=== PATIENT | female | born 1965 | race American Indian/Alaskan Native ===

== ENCOUNTER 2016-12-04 | Outpatient (CLI) | payer MEDICAID | END 2016-12-04 13:01 | disposition home or self-care (01) ==

== ENCOUNTER 2016-12-04 13:46 | Outpatient (CLI) | payer MEDICAID | END 2016-12-04 13:47 | disposition home or self-care (01) | DX: J98.11 Atelectasis (principal); R05 Cough ==

== ENCOUNTER 2016-12-25 10:18 | Outpatient (CLI) | payer MEDICAID | END 2016-12-25 10:19 | disposition home or self-care (01) | DX: Z53.9 Procedure and treatment not carried out, unspecified reason (principal) ==

== ENCOUNTER 2016-12-31 06:23 | Day surgery (SDC) | payer MEDICAID ==
[2016-12-31] MEDS ORDERED: LACTATED RINGERS 1,000 ML IV ONE (06:57)
[2016-12-31] MEDS ORDERED: MIDAZOLAM 2 MG/2 ML VIAL IVP ONE (07:30)
[2016-12-31] MEDS ORDERED: fentaNYL 250 MCG/5 ML VIAL IVP ONE (07:30)
== END 2016-12-31 06:24 | disposition home or self-care (01) ==
PROC: 0DBN8ZZ Excision of Sigmoid Colon, Via Natural or Artificial Opening Endoscopic (ICD-10-PCS; principal; 2016-12-31 07:30)
DX: Z12.11 Encounter for screening for malignant neoplasm of colon (principal); F41.9 Anxiety disorder, unspecified; E03.9 Hypothyroidism, unspecified; K64.8 Other hemorrhoids
CPT/HCPCS: 45385; J3010; J7120

== ENCOUNTER 2017-01-08 13:52 | Outpatient (CLI) | payer MEDICAID | END 2017-01-08 13:53 | disposition home or self-care (01) | DX: N64.52 Nipple discharge (principal) ==

== ENCOUNTER 2017-02-01 14:05 | Outpatient (CLI) | payer MEDICAID | END 2017-02-01 14:06 | disposition home or self-care (01) | DX: J30.9 Allergic rhinitis, unspecified (principal) ==

== ENCOUNTER 2017-02-07 16:52 | Outpatient (CLI) | payer MEDICAID | END 2017-02-07 16:53 | disposition home or self-care (01) | DX: R05 Cough (principal) ==

== ENCOUNTER 2017-03-29 10:34 | Outpatient (CLI) | payer MEDICAID | END 2017-03-29 10:35 | disposition home or self-care (01) | DX: R05 Cough (principal); E03.9 Hypothyroidism, unspecified; D50.9 Iron deficiency anemia, unspecified; E53.8 Deficiency of other specified B group vitamins ==

== ENCOUNTER 2017-04-02 15:20 | Outpatient (CLI) | payer MEDICAID | END 2017-04-02 15:21 | disposition home or self-care (01) | DX: R10.9 Unspecified abdominal pain (principal) ==

== ENCOUNTER 2018-08-21 08:00 | Outpatient (CLI) | payer MEDICAID ==
[2018-08-21 19:15] LABS: THYROID STIMULATING HORMONE 2.04 uIU/mL (0.34-5.60)
[2018-08-21 19:19] LABS: % IRON SATURATION 3 % (20-50); BUN - BLOOD UREA NITROGEN 9 mg/dL (6-20); CARBON DIOXIDE - CO2 24 mmol/L (21-32); CHLORIDE 106 mmol/L (101-111); CHOL/HDL RATIO 6.2 (<4.4); CHOLESTEROL 191 mg/dL; CREATININE 0.7 mg/dL (0.4-1.0); GFR - MDRD 88 (>89); GLUCOSE 113 mg/dL (70-100); HDL CHOLESTEROL 31 mg/dL; IRON 16 ug/dL (28-170); SODIUM 137 mmol/L (135-145); TOTAL IRON BINDING CAPACITY 552 ug/dL (250-450); TRANSFERRIN 394 mg/dL (192-382)
[2018-08-21 19:20] LABS: BASOPHILS # (AUTO) 0.1 10^3/uL (0.0-0.1); BASOPHILS % (AUTO) 2.3 %; EOSINOPHILS # (AUTO) 0.3 10^3/uL (0.0-0.7); EOSINOPHILS % (AUTO) 7.9 %; HGB - HEMOGLOBIN 7.2 g/dL (12.0-16.0); LYMPHOCYTES % (AUTO) 23.7 %; MEAN CORPUSCULAR HEMOGLOBIN 18.9 pg (27.0-31.0); MEAN CORPUSCULAR HGB CONC 28.9 g/dL (32.0-36.0); MEAN CORPUSCULAR VOLUME 65.6 fL (81.0-99.0); MEAN PLATELET VOLUME 8.2 fL (7.9-10.8); MONOCYTES # (AUTO) 0.3 10^3/uL (0.0-1.0); MONOCYTES % (AUTO) 5.8 %; NEUTROPHILS # (AUTO) 2.6 10^3/uL (1.5-6.6); NEUTROPHILS % (AUTO) 60.3 %; PLT - PLATELET COUNT 374 10^3/uL (130-450); RED BLOOD COUNT 3.79 10^6/uL (4.20-5.40); RED CELL DISTRIBUTION WIDTH 19.7 % (12.0-15.0); WHITE BLOOD COUNT 4.3 x10^3/uL (4.8-10.8)
[2018-08-21 19:52] LABS: LDL CHOLESTEROL,DIRECT 75 mg/dL; LDLD/HDL RATIO 2.4 (<4.4)
[2018-08-21 20:06] LABS: PLATELET ESTIMATE, MANUAL NORMAL (130-450,000) (NORMAL); PLATELET MORPHOLOGY NORMAL APPEARANCE (NORMAL)
== END 2018-08-21 08:01 ==
LOC: LAB.N 08:00
PROVIDERS: ATTEND Physician Assistant Medical
DX: Z00.00 Encounter for general adult medical examination without abnormal findings (principal); D50.8 Other iron deficiency anemias; E78.1 Pure hyperglyceridemia; E53.8 Deficiency of other specified B group vitamins; E03.9 Hypothyroidism, unspecified
CPT/HCPCS: 36415; 80048; 80061; 82607; 82728; 83540; 83721; 84443; 84466; 85025

== ENCOUNTER 2019-01-26 13:30 | Emergency (ER) | payer MEDICAID, OTHER ==
[2019-01-26 15:40] VITALS: BP 109/61
--- NOTE | 2019-01-26 15:51 | ED Physician Documentation ---
PD HPI BACK INJURY - Stated complaint Stated Complaint: BACK PX - History obtained from History obtained from: Patient - History of Present Illness Location: Right (2 days ago at work she was leaning over a patient and pulled her back. She has had right lower back pain ever since not radiating to the legs or groin. There is no saddle anesthesia, weakness, numbness, fevers, incontinence. She does not have a history of back pain.) Review of Systems Constitutional: reports: Reviewed and negative Cardiac: reports: Reviewed and negative Respiratory: reports: Reviewed and negative PD PAST MEDICAL HISTORY - Past Surgical History Past Surgical History: Yes General: Gastric surgery - Present Medications Home Medications: Ambulatory Orders Medication Instructions Recorded Confirmed Alprazolam [Xanax] 0.5 mg PO DAILY PRN 12/28/16 12/31/16 Dextroamphetamine/Amphetamine 5 mg PO DAILY 12/28/16 12/31/16 [Adderall 10 mg Tablet] Zolpidem [Ambien] 5 mg PO HS PRN 12/28/16 12/31/16 B12/Levomefolate Calcium/B-6 1 each PO DAILY 12/31/16 12/31/16 [Foltx Tablet] Cyclobenzaprine [Flexeril] 10 mg PO PRN PRN 12/31/16 12/31/16 Ferrous Sulfate [Iron] 325 mg PO DAILY 12/31/16 12/31/16 Cyclobenzaprine [Flexeril] 10 mg PO TID PRN #20 tablet 01/26/19 Ibuprofen [Motrin] 800 mg PO Q8H PRN #30 tablet 01/26/19 - Allergies Allergies/Adverse Reactions: Allergies Allergy/AdvReac Type Severity Reaction Status Date / Time No Known Drug Allergies Allergy Verified 01/26/19 13:41 - Social History Does the pt smoke?: Yes Smoking Status: Current every day smoker Does the pt drink ETOH?: Yes Does the pt have substance abuse?: No - Immunizations Immunizations are current?: Yes PD ED PE NORMAL - Vitals Vital signs reviewed: Yes - General General: Alert and oriented X 3, No acute distress - Back Back: No CVA TTP, No spinal TTP - Extremities Extremities: Other (The patient has equal and normal Achilles and patellar reflexes bilaterally. Normal sensation in all areas of the legs. Patient denies saddle anesthesia. Normal strength in flexion-extension at the ankles, knees, and flexion of the hips.) - Neuro Neuro: Alert and oriented X 3, Normal speech - Psych Psych: Normal mood, Normal affect Results - Vitals Vitals: Vital Signs - 24 hr 01/26/19 01/26/19 13:39 15:39 Temperature 36.3 C L 36.6 C Heart Rate 69 79 Respiratory 18 16 Rate Blood Pressure 111/62 109/61 O2 Saturation 97 Oxygen O2 Source Room air Departure - Departure Disposition: Home, Self Care Clinical Impression: Lumbar strain Qualifiers: Encounter type: initial encounter Qualified Code(s): S39.012A - Strain of muscle, fascia and tendon of lower back, initial encounter Condition: Good Record reviewed to determine appropriate education?: Yes Instructions: ED Sprain Strain Lumbar Prescriptions: Cyclobenzaprine [Flexeril] 10 mg PO TID PRN #20 tablet PRN Reason: Spasms Ibuprofen [Motrin] 800 mg PO Q8H PRN #30 tablet PRN Reason: PAIN &/OR FEVER Comments: Call your doctor to arrange a follow-up appointment, make the next available appointment. In the interim, return anytime if worse or if new symptoms develop. Forms: Activity restrictions
== END 2019-01-26 16:00 | disposition home or self-care (01) ==
LOC: ED 13:30
DX: S39.012A Strain of muscle, fascia and tendon of lower back, initial encounter (principal); X50.9XXA Other and unspecified overexertion or strenuous movements or postures, initial encounter; Y93.F9 Activity, other caregiving; Y99.0 Civilian activity done for income or pay; F17.200 Nicotine dependence, unspecified, uncomplicated
CPT/HCPCS: 1040M; 99283

== ENCOUNTER 2019-06-05 08:00 | Outpatient (CLI) | payer MEDICAID | END 2019-06-05 23:59 | disposition home or self-care (01) | LOC: LAB.R 08:00 | PROVIDERS: ATTEND Family Medicine | DX: N39.0 Urinary tract infection, site not specified (principal) | CPT/HCPCS: 87086; 87181 ==

== ENCOUNTER 2020-03-22 08:00 | Outpatient (CLI) | payer SELFPAY | END 2020-03-22 23:59 | disposition home or self-care (01) | LOC: LAB.R 08:00 | PROVIDERS: ATTEND Family Medicine | DX: R50.9 Fever, unspecified (principal); Z20.828 Contact with and (suspected) exposure to other viral communicable diseases | CPT/HCPCS: 81599 ==

== ENCOUNTER 2020-04-19 09:42 | Outpatient (CLI) | payer SELFPAY ==
--- NOTE | 2020-04-19 17:40 | XRAY Report ---
Reason: RIGHT LEG PAIN Procedure Date: 04/19/2020 Accession Number: [id number] / [id number] Procedure: WCP - Tib/Fib RT CPT Code: Final Report FULL RESULT: EXAM: RIGHT TIBIA/FIBULA RADIOGRAPHY EXAM DATE: 04/19/2020 09:35 AM. CLINICAL HISTORY: RIGHT LEG PAIN. Fall 10 days ago, pain along the entire fibula. COMPARISON: None. TECHNIQUE: 2 views. FINDINGS: Bones: Cortical lucency seen at the medial aspect of the fibula neck concerning for an acute fibular neck fracture. Adjacent soft tissue swelling. Correlate clinically. Chronic bone density seen distal to the medial malleolus, suspect chronic avulsion fracture. Joints: No subluxation. Mild patellofemoral degenerative joint disease. IMPRESSION: Cortical lucency seen at the medial aspect of the fibula neck concerning for an acute fibular neck fracture. Adjacent soft tissue swelling. Correlate clinically. RADIA
--- NOTE | 2020-04-19 17:59 | XRAY Report ---
Reason: RIGHT ANKLE PAIN Procedure Date: 04/19/2020 Accession Number: [id number] / [id number] Procedure: WCP - Ankle 3 View RT CPT Code: Final Report FULL RESULT: EXAM: RIGHT ANKLE RADIOGRAPHY EXAM DATE: 04/19/2020 09:42 AM. CLINICAL HISTORY: RIGHT ANKLE PAIN. Status post fall 10 days ago with lateral malleolar pain. COMPARISON: None. TECHNIQUE: 3 views. FINDINGS: Bones: No acute fracture. Ossified body adjacent to the tip of the medial malleolus likely sequela of old trauma. There is also an ossified body adjacent to the tip of the lateral malleolus, also likely representing sequela of old trauma. No suspicious osseous lesion. Plantar and posterior calcaneal spurs. Joints: Moderate tibiotalar joint osteoarthritis . Asymmetric tibiotalar joint space loss most pronounced in the medial aspect. No dislocation. Other: None. IMPRESSION: 1. No acute osseous abnormality. 2. Chronic findings detailed above. RADIA
== END 2020-04-19 09:43 | disposition home or self-care (01) ==
LOC: DI.WCP 09:42
PROVIDERS: ATTEND Family Medicine
DX: M19.071 Primary osteoarthritis, right ankle and foot (principal); M79.604 Pain in right leg

== ENCOUNTER 2020-04-29 08:42 | Outpatient (CLI) | payer MEDICAID ==
--- NOTE | 2020-04-29 15:59 | XRAY Report ---
Reason: RIGHT PROXIMAL FIBULA FRACTURE Procedure Date: 04/29/2020 Accession Number: [id number] / [id number] Procedure: WCP - Tib/Fib RT CPT Code: Final Report FULL RESULT: EXAM: RIGHT TIBIA/FIBULA RADIOGRAPHY EXAM DATE: 04/29/2020 09:18 AM. CLINICAL HISTORY: Right proximal fibula fracture. COMPARISON: XR LEG LOWER RT 04/19/2020 9:35 AM. TECHNIQUE: 2 views. FINDINGS: Bones: As before, there is a nondisplaced fracture at the fibular neck. No bone lesions. Small bone fragment adjacent to the medial malleolus which may represent an accessory ossicle or old ununited fracture. Joints: The visualized knee and ankle joints are normal. No effusions. Soft Tissues: Normal. No soft tissue swelling. IMPRESSION: 1. Persistent nondisplaced fracture at the fibular neck. No significant change since the prior study. 2. Small accessory ossicle or old ununited fracture adjacent to the medial malleolus. RADIA
== END 2020-04-29 23:59 | disposition home or self-care (01) ==
LOC: DI.WCP 08:42
PROVIDERS: ATTEND Orthopaedic Surgery
DX: S82.81 Torus fracture of upper end of fibula (principal)

== ENCOUNTER 2020-05-26 12:20 | Outpatient (CLI) | payer MEDICAID ==
[2020-05-26 18:33] LABS: BASOPHILS # (AUTO) 0.1 10^3/uL (0.0-0.1); BASOPHILS % (AUTO) 1.2 %; EOSINOPHILS # (AUTO) 0.2 10^3/uL (0.0-0.7); EOSINOPHILS % (AUTO) 3.6 %; HGB - HEMOGLOBIN 7.5 g/dL (12.0-16.0); LYMPHOCYTES # (AUTO) 1.2 10^3/uL (1.5-3.5); LYMPHOCYTES % (AUTO) 17.8 %; MEAN CORPUSCULAR HEMOGLOBIN 18.7 pg (27.0-31.0); MEAN CORPUSCULAR HGB CONC 25.6 g/dL (32.0-36.0); MEAN CORPUSCULAR VOLUME 73.1 fL (81.0-99.0); MEAN PLATELET VOLUME 11.2 fL (7.9-10.8); MONOCYTES # (AUTO) 0.3 10^3/uL (0.0-1.0); MONOCYTES % (AUTO) 4.6 %; NEUTROPHILS # (AUTO) 4.7 10^3/uL (1.5-6.6); NEUTROPHILS % (AUTO) 72.5 %; PLT - PLATELET COUNT 325 10^3/uL (130-450); RED BLOOD COUNT 4.01 10^6/uL (4.20-5.40); RED CELL DISTRIBUTION WIDTH 19.1 % (12.0-15.0); WHITE BLOOD COUNT 6.5 x10^3/uL (4.8-10.8)
[2020-05-26 18:52] LABS: PLATELET ESTIMATE, MANUAL NORMAL (130-450,000) (NORMAL); PLATELET MORPHOLOGY NORMAL APPEARANCE (NORMAL)
[2020-05-26 19:18] LABS: ALBUMIN 3.8 g/dL (3.2-5.5); ALBUMIN/GLOBULIN RATIO 1.4 (1.0-2.2); ALKALINE PHOSPHATASE 50 IU/L (42-121); ALT ALANINE AMINOTRANSFERASE < 10 IU/L (10-60); AST ASPARTATE AMINOTRANSFERASE 13 IU/L (10-42); BILIRUBIN,TOTAL 0.7 mg/dL (0.2-1.0); BUN - BLOOD UREA NITROGEN 8 mg/dL (6-20); CARBON DIOXIDE - CO2 24 mmol/L (21-32); CHLORIDE 105 mmol/L (101-111); CHOL/HDL RATIO 3.6 (<4.4); CHOLESTEROL 152 mg/dL; CREATININE 0.6 mg/dL (0.4-1.0); GLUCOSE 99 mg/dL (70-100); HDL CHOLESTEROL 42 mg/dL; LDL CHOLESTEROL,CALCULATED 44 mg/dL; SODIUM 135 mmol/L (135-145); TOTAL PROTEIN 6.6 g/dL (6.7-8.2); VLDL CHOLESTEROL 66 mg/dL
[2020-05-26 19:20] LABS: FREE T3 2.84 pg/mL (2.5-3.9)
[2020-05-26 19:21] LABS: FREE T4 (FREE THYROXINE) 0.69 ng/dL (0.58-1.64); THYROID STIMULATING HORMONE 3.45 uIU/mL (0.34-5.60)
== END 2020-05-26 23:59 | disposition home or self-care (01) ==
LOC: LAB.WCP 12:20
PROVIDERS: ATTEND Family Medicine
DX: E03.9 Hypothyroidism, unspecified (principal); N18.2 Chronic kidney disease, stage 2 (mild); D50.9 Iron deficiency anemia, unspecified
CPT/HCPCS: 36415; 80053; 80061; 83721; 84439; 84443; 84481; 85025

== ENCOUNTER 2020-08-15 08:00 | Outpatient (CLI) | payer MEDICAID ==
[2020-08-15 19:16] LABS: ABSOLUTE RETICS # AUTO 0.054 10^6/uL (0.020-0.110); BASOPHILS # (AUTO) 0.1 10^3/uL (0.0-0.1); BASOPHILS % (AUTO) 2.2 %; EOSINOPHILS # (AUTO) 0.3 10^3/uL (0.0-0.7); EOSINOPHILS % (AUTO) 6.4 %; HGB - HEMOGLOBIN 10.2 g/dL (12.0-16.0); LYMPHOCYTES # (AUTO) 1.5 10^3/uL (1.5-3.5); LYMPHOCYTES % (AUTO) 36.9 %; MEAN CORPUSCULAR HEMOGLOBIN 24.2 pg (27.0-31.0); MEAN CORPUSCULAR HGB CONC 29.1 g/dL (32.0-36.0); MEAN CORPUSCULAR VOLUME 83.4 fL (81.0-99.0); MEAN PLATELET VOLUME 11.2 fL (7.9-10.8); MONOCYTES # (AUTO) 0.3 10^3/uL (0.0-1.0); MONOCYTES % (AUTO) 7.1 %; NEUTROPHILS # (AUTO) 1.9 10^3/uL (1.5-6.6); NEUTROPHILS % (AUTO) 47.2 %; PLT - PLATELET COUNT 336 10^3/uL (130-450); RED BLOOD COUNT 4.21 10^6/uL (4.20-5.40); RED CELL DISTRIBUTION WIDTH 23.8 % (12.0-15.0); WHITE BLOOD COUNT 4.1 x10^3/uL (4.8-10.8)
[2020-08-15 19:55] LABS: FOLATE 12.09 ng/mL (5.90 - >24.8)
[2020-08-15 19:56] LABS: % IRON SATURATION 4 % (20-50); IRON 18 ug/dL (28-170); TOTAL IRON BINDING CAPACITY 491 ug/dL (250-450); TRANSFERRIN 351 mg/dL (192-382)
[2020-08-15 20:51] LABS: PLATELET ESTIMATE, MANUAL NORMAL (130-450,000) (NORMAL); PLATELET MORPHOLOGY NORMAL APPEARANCE (NORMAL)
== END 2020-08-15 23:59 | disposition home or self-care (01) ==
LOC: LAB.WCP 08:00
PROVIDERS: ATTEND Family Medicine
DX: D64.9 Anemia, unspecified (principal)
CPT/HCPCS: 36415; 82607; 82728; 82746; 83540; 84466; 85025; 85045

== ENCOUNTER 2020-08-15 10:05 | Outpatient (CLI) | payer MEDICAID ==
--- NOTE | 2020-08-17 07:17 | Mammography Report ---
BILATERAL DIGITAL SCREENING MAMMOGRAM 3D/2D: 08/15/2020 CLINICAL: Routine screening. Comparison is made to exam dated: 01/08/2017 mammogram - [facility]. There are scat tered fibroglandular elements in both breasts. No significant masses, calcifications, or other findings are seen in either breast. There has been no significant interval change. IMPRESSION: NEGATIVE There is no mammographic evidence of malignancy. A 1 year screening mammogram is recommended. This exam was interpreted at Station ID: [id number]. NOTE: For mammograms, a report in lay terms will be sent to the patient. Approximately 15% of breast malignancies will not be visualized mammographically. In the management of a palpable breast mass, a negative mammogram must not discourage biopsy of a clinically suspicious lesion. Electronically Signed By: Arelis harvey/aileen:08/15/2020 11:46:47 ACR BI-RADS Category 1: Negative 3341F PARENCHYMAL PATTERN: (A) - The breast(s) demonstrate(s) scattered fibroglandular densities. BI-RADS CATEGORY: (1) - 1 RECOMMENDATION: (ANNUAL) - Recommend routine annual screening mammography. [id number] 1 year screening LATERALITY: (B)
== END 2020-08-15 10:06 | disposition home or self-care (01) ==
LOC: DI.N 10:05
DX: Z12.31 Encounter for screening mammogram for malignant neoplasm of breast (principal)
CPT/HCPCS: 77063; 77067

== ENCOUNTER 2020-11-18 08:00 | Outpatient (CLI) | payer MEDICAID ==
[2020-11-18 18:16] LABS: BASOPHILS # (AUTO) 0.1 10^3/uL (0.0-0.1); BASOPHILS % (AUTO) 1.3 %; EOSINOPHILS # (AUTO) 0.3 10^3/uL (0.0-0.7); EOSINOPHILS % (AUTO) 6.5 %; HGB - HEMOGLOBIN 12.4 g/dL (12.0-16.0); LYMPHOCYTES # (AUTO) 1.6 10^3/uL (1.5-3.5); MEAN CORPUSCULAR HEMOGLOBIN 26.8 pg (27.0-31.0); MEAN CORPUSCULAR VOLUME 89.6 fL (81.0-99.0); MEAN PLATELET VOLUME 11.7 fL (7.9-10.8); MONOCYTES # (AUTO) 0.2 10^3/uL (0.0-1.0); MONOCYTES % (AUTO) 4.9 %; NEUTROPHILS # (AUTO) 2.3 10^3/uL (1.5-6.6); NEUTROPHILS % (AUTO) 52.1 %; PLT - PLATELET COUNT 293 10^3/uL (130-450); RED BLOOD COUNT 4.62 10^6/uL (4.20-5.40); RED CELL DISTRIBUTION WIDTH 20.4 % (12.0-15.0); WHITE BLOOD COUNT 4.5 x10^3/uL (4.8-10.8)
[2020-11-18 18:40] LABS: PLATELET ESTIMATE, MANUAL NORMAL (130-450,000) (NORMAL); PLATELET MORPHOLOGY NORMAL APPEARANCE (NORMAL)
== END 2020-11-18 23:59 ==
LOC: LAB.WCP 08:00
PROVIDERS: ATTEND Family Medicine
DX: D64.9 Anemia, unspecified (principal)
CPT/HCPCS: 36415; 82728; 85025

== ENCOUNTER 2021-02-17 08:00 | Outpatient (CLI) | payer MEDICAID ==
[2021-02-17 17:58] LABS: BASOPHILS # (AUTO) 0.1 10^3/uL (0.0-0.1); BASOPHILS % (AUTO) 1.4 %; EOSINOPHILS # (AUTO) 0.4 10^3/uL (0.0-0.7); EOSINOPHILS % (AUTO) 8.6 %; HCT - HEMATOCRIT 41.5 % (37.0-47.0); HGB - HEMOGLOBIN 13.5 g/dL (12.0-16.0); LYMPHOCYTES # (AUTO) 1.6 10^3/uL (1.5-3.5); LYMPHOCYTES % (AUTO) 39.3 %; MEAN CORPUSCULAR HEMOGLOBIN 31.6 pg (27.0-31.0); MEAN CORPUSCULAR HGB CONC 32.5 g/dL (32.0-36.0); MEAN CORPUSCULAR VOLUME 97.2 fL (81.0-99.0); MONOCYTES # (AUTO) 0.3 10^3/uL (0.0-1.0); MONOCYTES % (AUTO) 6.2 %; NEUTROPHILS # (AUTO) 1.8 10^3/uL (1.5-6.6); NEUTROPHILS % (AUTO) 44.3 %; PLT - PLATELET COUNT 248 10^3/uL (130-450); RED BLOOD COUNT 4.27 10^6/uL (4.20-5.40); RED CELL DISTRIBUTION WIDTH 14.4 % (12.0-15.0); WHITE BLOOD COUNT 4.2 x10^3/uL (4.8-10.8)
[2021-02-17 18:26] LABS: % IRON SATURATION 29 % (20-50); IRON 104 ug/dL (28-170); TOTAL IRON BINDING CAPACITY 356 ug/dL (250-450); TRANSFERRIN 254 mg/dL (192-382)
== END 2021-02-17 23:59 | disposition home or self-care (01) ==
LOC: LAB.WCP 08:00
PROVIDERS: ATTEND Family Medicine
DX: D50.9 Iron deficiency anemia, unspecified (principal)
CPT/HCPCS: 36415; 82728; 83540; 84466; 85025

== ENCOUNTER 2021-06-30 08:00 | Outpatient (CLI) | payer MEDICAID ==
[2021-06-30 17:38] LABS: BASOPHILS % (AUTO) 0.9 %; EOSINOPHILS # (AUTO) 0.3 10^3/uL (0.0-0.7); EOSINOPHILS % (AUTO) 5.8 %; HCT - HEMATOCRIT 44.4 % (37.0-47.0); HGB - HEMOGLOBIN 14.5 g/dL (12.0-16.0); LYMPHOCYTES # (AUTO) 1.4 10^3/uL (1.5-3.5); LYMPHOCYTES % (AUTO) 31.3 %; MEAN CORPUSCULAR HEMOGLOBIN 32.2 pg (27.0-31.0); MEAN CORPUSCULAR HGB CONC 32.7 g/dL (32.0-36.0); MEAN CORPUSCULAR VOLUME 98.4 fL (81.0-99.0); MEAN PLATELET VOLUME 10.8 fL (7.9-10.8); MONOCYTES # (AUTO) 0.3 10^3/uL (0.0-1.0); MONOCYTES % (AUTO) 5.6 %; NEUTROPHILS # (AUTO) 2.5 10^3/uL (1.5-6.6); NEUTROPHILS % (AUTO) 56.2 %; PLT - PLATELET COUNT 221 10^3/uL (130-450); RED BLOOD COUNT 4.51 10^6/uL (4.20-5.40); RED CELL DISTRIBUTION WIDTH 12.3 % (12.0-15.0); WHITE BLOOD COUNT 4.5 x10^3/uL (4.8-10.8)
[2021-06-30 17:52] LABS: % IRON SATURATION 39 % (20-50); ALBUMIN 4.2 g/dL (3.2-5.5); ALBUMIN/GLOBULIN RATIO 1.4 (1.0-2.2); ALKALINE PHOSPHATASE 87 IU/L (42-121); ALT ALANINE AMINOTRANSFERASE 49 IU/L (10-60); AST ASPARTATE AMINOTRANSFERASE 27 IU/L (10-42); BILIRUBIN,TOTAL 1.4 mg/dL (0.2-1.0); BUN - BLOOD UREA NITROGEN 8 mg/dL (6-20); CALCIUM 10.5 mg/dL (8.5-10.3); CARBON DIOXIDE - CO2 26 mmol/L (21-32); CHLORIDE 101 mmol/L (101-111); CHOL/HDL RATIO 5.8 (<4.4); CHOLESTEROL 266 mg/dL; CREATININE 0.7 mg/dL (0.4-1.0); GFR - MDRD 87 (>89); GLUCOSE 107 mg/dL (70-100); HDL CHOLESTEROL 46 mg/dL; IRON 167 ug/dL (28-170); POTASSIUM 4.3 mmol/L (3.5-5.0); SODIUM 136 mmol/L (135-145); TOTAL IRON BINDING CAPACITY 427 ug/dL (250-450); TOTAL PROTEIN 7.1 g/dL (6.7-8.2); TRANSFERRIN 305 mg/dL (192-382); TRIGLYCERIDES 606 mg/dL
[2021-06-30 18:04] LABS: THYROID STIMULATING HORMONE 5.38 uIU/mL (0.34-5.60)
[2021-06-30 18:10] LABS: FERRITIN 45.2 ng/mL (11.0-306.8)
[2021-06-30 18:15] LABS: FOLATE 12.93 ng/mL (5.90 - >24.8)
[2021-06-30 18:48] LABS: LDL CHOLESTEROL,DIRECT 149 mg/dL; LDLD/HDL RATIO 3.2 (<4.4)
== END 2021-06-30 23:59 | disposition home or self-care (01) ==
LOC: LAB.WCP 08:00
PROVIDERS: ATTEND Family Medicine
DX: M19.049 Primary osteoarthritis, unspecified hand (principal); J45.909 Unspecified asthma, uncomplicated; Z98.84 Bariatric surgery status; D64.9 Anemia, unspecified; E03.9 Hypothyroidism, unspecified; D50.8 Other iron deficiency anemias
CPT/HCPCS: 36415; 80053; 80061; 82607; 82728; 82746; 83540; 83721; 84443; 84466; 85025

== ENCOUNTER 2021-07-27 14:09 | Outpatient (CLI) | payer MEDICAID ==
[2021-07-27 15:15] VITALS: BP 115/77
--- NOTE | 2021-07-27 15:15 | SLEEP CARE CONSULTATION ---
Information from patient questionnaire entered by Jaelyn Cazares. I have reviewed and concur with the information entered by Jaelyn Cazares. This document represents the service I personally performed and the decisions made by me, Alyssa Cadet ARNP. History of Present Illness Service Date and Time: 07/27/2021 1409 Reason for Visit: New patient Chief Complaint: reports: Unrefreshed sleep, Snoring, Excessive daytime sleepiness, Observed pauses in breathing, Fatigue. denies: Frequent awakenings at night Date of Onset: 20 years Usual bedtime: 1 am Time it takes to fall asleep: 20 minutes Snores at night: Yes Observed to quit breathing while asleep: Yes Sleeps alone due to snoring: No Number of times waking at night: 2 Reasons for waking at night: reports: Snoring, Bathroom, Other (hot flashes) Toss, Turn, or Twitch while sleeping: Yes Recalls having dreams: Yes Usually gets out of bed at: 10 am Feels refreshed in the morning: No Morning headache: Yes (occasionally; 1x week) Sleepy or fatigued during the day: Yes Ever fallen asleep while driving: No Takes day naps: No Dreams during day naps: Yes Prior sleep studies: No Additional HPI information: I had the pleasure of seeing ZELALEM MICHELLE today regarding the possibility of her having a sleep disorder. Her current complaints are observed pauses in breathing, fatigue and snoring. She was over 200 pounds and had times when she stopped breathing and snored loudly. She had gastric bypass surgery and lost weight which reduced the snoring and pauses in breathing. She has been gaining weight slowly over the last 4 years and she has noted increase in snoring and family has told her she is stopping breathing at night. She states it is hard to get up, doesn't ever feel rested. She has occasional morning headaches and has woke herself up "snorting". She has a sibling who has been diagnosed with sleep apnea and in on PAP machine. 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 Patient is and lives in [place]. Have you smoked in the past 12 months: No Cigarettes per day (20/pack): 10 Years of smokin Quit date: 2015 Smoking Pack Years: 2.5 Alcohol use: Yes Alcohol amount and frequency: 1-2 drinks 5 - 7 times a week Caffeine use: Yes Caffeine amount and frequency: 1 drink occasionally Family History Family history of sleep disordered breathing: Yes Family Hx Sleep Apnea: Father: Snoring, Sleep apnea - Untreated, Sibling: Snoring, Sleep apnea - Treated Allergies and Home Medications Drug allergies reviewed: Yes (NKDA) Home medication list reviewed: Yes Allergy and home medication list: Trazodone Bupropion Iron infusion 2 x year, prn Review of Systems Cardiovascular: denies: high blood pressure Gastrointestinal: reports: heartburn Psychiatric: reports: other (ADD) Ear/Nose/Throat: reports: dry mouth/throat, other (dry cough). denies: tonsil lectomy Musculoskeletal: reports: joint pain Physical Exam Blood Pressure: 115/77 Cuff size: wrist Heart Rate: 90 O2 Saturation: 97 Height: 5 ft 6 in Weight: 196 lb Body Mass Index: 31.6 BMI Classification: Obese Neck circumference: 13.75 (inches) Nostrils: patent to airflow Mouth and throat: narrow oropharynx Soft palate: long Hard palate: normal Uvula: normal Uvula visualization: 100% Mallampati Class I Tongue: normal in size Tonsils: small Neck: normal w/o lymphadenopathy or thyromegaly Heart: regular rate and rhythm Lungs: clear bilaterally Impression and Plan 1. Suspected Obstructive Sleep Apnea-Hypopnea Syndrome, as suggested by a history of loud and irregular snoring, observed cessation of breath while asleep, morning headache, unrefreshed sleep, cognitive impairment, and excessive daytime sleepiness. Narrow oropharynx and obesity are common predisposing factors for obstructive sleep apnea-hypopnea syndrome. I recommend proceeding to polysomnography to confirm the diagnosis and to assess severity. If the patient has significant sleep disordered breathing, a manual CPAP titration study will also be performed to find the optimal treatment pressure. I informed the patient of what the sleep studies involve and after some discussion, obtained agreement to proceed. The pathophysiology of obstructive sleep apnea-hypopnea syndrome was discussed with the patient and health risks of cardiovascular and cerebrovas cular disease if not treated. Risks of drowsy driving discussed in detail and patient advised to avoid long distance driving and to pull out operator at the first sign of drowsiness. Patient agreed to plan. * Schedule polysomnography +- manual CPAP titration study and return in 1-2 weeks after the study to discuss result and initiate therapy. * Avoid long distance driving or driving when feeling sleepy. * Avoid alcohol, sedative and muscle relaxant around bedtime. * Attempt to lose weight. * Review instructions provided by trained office staff on how to prepare for the sleep study. * Return for follow-up after sleep study completed. Counseling Topics: Weight loss health impact Visit Type: In Office Time Spent with Patient (minutes): 31 Provider Statement: I spent 100% of the Face to Face Visit with the patient with greater than 50% spent counseling the patient and coordination of care.
== END 2021-07-27 14:10 | disposition home or self-care (01) ==
LOC: SC 14:09
PROVIDERS: ATTEND Nurse Practitioner Family
DX: G47.10 Hypersomnia, unspecified (principal); R06.83 Snoring; R06.81 Apnea, not elsewhere classified; R41.89 Other symptoms and signs involving cognitive functions and awareness; R51.9 Headache, unspecified; E66.9 Obesity, unspecified; Z68.31 Body mass index [BMI] 31.0-31.9, adult
CPT/HCPCS: 99203; 99212

== ENCOUNTER 2021-08-29 12:14 | Outpatient (CLI) | payer MEDICAID ==
--- NOTE | 2021-08-29 17:33 | XRAY Report ---
PROCEDURE: Shoulder 3 View RT INDICATIONS: ANTERIOR SUBLUXATION OF R HUMERUS TECHNIQUE: 3 views of the shoulder were acquired. COMPARISON: None. FINDINGS: Bones: No fractures or dislocations. Moderate acromioclavicular joint osteoarthritic changes are see n. Mild to moderate glenohumeral joint osteoarthritic changes also noted. No suspicious bony lesions. Visualized ribs appear intact. Soft tissues: No suspicious soft tissue calcifications. IMPRESSION: Mild to moderate right shoulder joint osteoarthritis. No acute shoulder fracture or disl ocation. Reviewed by: Antonio Carrillo MD on 08/29/2021 5:32 PM PDT Approved by: Antonio Carrillo MD on 08/29/2021 5:32 PM PDT Station ID: [id number]
== END 2021-08-29 12:15 ==
LOC: DI.N 12:14
PROVIDERS: ATTEND Physician Assistant Medical
DX: S43.011A Anterior subluxation of right humerus, initial encounter (principal); M19.011 Primary osteoarthritis, right shoulder

== ENCOUNTER 2022-08-29 10:56 | Outpatient (CLI) | payer MEDICAID ==
[2022-08-29 11:23] VITALS: BP 112/82
--- NOTE | 2022-08-29 11:23 | SLEEP CARE CONSULTATION ---
Information from patient questionnaire entered by Carroll Ceja. I have reviewed and concur with the information entered by Carroll Ceja. This document represents the service I personally performed and the decisions made by me, Alyssa Cadet ARNP. History of Present Illness Service Date and Time: 08/29/2022 1056 Reason for follow up: annual (last seen 07/22, sleep study never done ) Prior sleep studies: No HPI additional information: I had the pleasure of seeing ZELALEM MICHELLE today regarding the possibility of her having a sleep disorder. She was last seen in July 2021 and a sleep study was ordered but never done. She returns today with complaints of unrefreshed sleep, snoring, excessive daytime sleepiness, fatigue and observed pauses in breathing. The patient tells me that she normally goes to bed around 1200 AM, and it takes her approximately 60 minutes to fall asleep. She has been told that she snores loudly and irregularly at night. She has been observed to stop breathing in her sleep. Her bed partner has to sleep in another room due to the loudness of her snoring. She can recall waking up on the average of once during the night. Most of the time she wakes up because of need to turn over or bathroom. She has occasionally awakened for her own snoring and dry mouth. There is not a lot of tossing and turning in her sleep. Generally she can recall having dreams. She usually wakes up at 0800 and does not feel refreshed. She usually does have a morning headache that last about an hour. During the day she complains of feeling sleepy and fatigued. She has never fallen asleep while driving nor has any accident due to sleepiness. She usually does not take naps during the day. If she naps, upon falling asleep during the day she admits to having vivid dreams. She reports having impaired concentration during the day. There is no somniloquy (sleep talking) or somnambulism (sleep walking). She has never experienced sleep paralysis or cataplexy. She has neuropathy in her feet and has felt restless sensation in her legs. Sleep Study - Results Prior sleep studies: No Subjective Initial [place] Sleepiness Scale score: 7 (in 2020) Current [place] Sleepiness Scale score: 7 (08/29/22) Allergies and Home Medications Drug allergies reviewed: Yes (NKDA) Home medication list reviewed: Yes (no changes) Review of Systems Review of systems same as previous: Yes (no changes) Physical Exam Vital signs obtained and entered by: JAMES PADILLA Blood Pressure: 112/82 (left arm ) Cuff size: regular Heart Rate: 76 O2 Saturation: 95 Height: 5 ft 6 in Weight: 208 lb Body Mass Index: 33.5 BMI Classification: Obese Impression and Plan 1. Suspected Obstructive Sleep Apnea-Hypopnea Syndrome, as suggested by a history of loud and irregular snoring, observed cessation of breath while asleep, unrefreshed sleep, cognitive impairment, and excessive daytime sleepiness. I recommend proceeding to polysomnography to confirm the diagnosis and to assess severity. If the patient has significant sleep disordered breathing, a manual CPAP titration study will also be performed to find the optimal treatment pressure. I informed the patient of what the sleep studies involve and after some discussion, obtained agreement to proceed. The pathophysiology of obstructive sleep apnea-hypopnea syndrome was discussed with the patient and health risks of cardiovascular and cerebrovascular disease if not treated. Risks of drowsy driving discussed in detail and patient advised to avoid long distance driving and to lime puller at the first sign of drowsiness. Patient agreed to plan. * Schedule polysomnography * Avoid long distance driving or driving when feeling sleepy. * Avoid alcohol, sedative and muscle relaxant around bedtime. * Attempt to lose weight. * Review instructions provided by trained office staff on how to prepare for the sleep study. * Return for follow-up after sleep study completed. Counseling Topics: Weight loss health impact Visit Type: In Office Time Spent with Patient (minutes): 20 Provider Statement: I spent 100% of the Face to Face Visit with the patient with greater than 50% spent counseling the patient and coordination of care.
== END 2022-08-29 10:57 | disposition home or self-care (01) ==
LOC: SC 10:56
PROVIDERS: ATTEND Nurse Practitioner Family
DX: G47.10 Hypersomnia, unspecified (principal); R53.83 Other fatigue; R51.9 Headache, unspecified; R06.83 Snoring; G47.8 Other sleep disorders; R06.81 Apnea, not elsewhere classified; F32.A Depression, unspecified; F98.8 Other specified behavioral and emotional disorders with onset usually occurring in childhood and adolescence; E66.9 Obesity, unspecified; Z68.33 Body mass index [BMI] 33.0-33.9, adult
CPT/HCPCS: 99212; 99213

== ENCOUNTER 2022-09-24 19:34 | Outpatient (CLI) | payer MEDICAID | END 2022-09-24 19:35 | disposition home or self-care (01) | LOC: SC 19:34 | PROVIDERS: ATTEND Nurse Practitioner Family | DX: G47.33 Obstructive sleep apnea (adult) (pediatric) (principal) | CPT/HCPCS: 95810 ==

== ENCOUNTER 2022-10-17 13:50 | Outpatient (CLI) | payer MEDICAID ==
--- NOTE | 2022-10-17 14:24 | SLEEP CARE CONSULTATION ---
Information from patient questionnaire entered by Lenka Montano. I have reviewed and concur with the information entered by Lenka Montano. This document represents the service I personally performed and the decisions made by , Alyssa Cadet ARNP. History of Present Illness Service Date and Time: 10/17/2022 1350 Initial [place] Sleepiness Scale score: 7 (in 2020) Current [place] Sleepiness Scale score: 6 (10/17/2022) Additional HPI information: ZELALEM MICHELLE returns for follow up and results of the recently performed polysomnography. I explained the pathophysiology behind obstructive sleep apnea. We then spent quite a bit of time discussing different treatment options. For mild obstructive sleep apnea, surgery and oral appliance are alternatives to nasal CPAP therapy but in moderate or severe cases, nasal CPAP is the most effective and reliable treatment. Because apnea is primarily in supine position, then positional management therapy could be effective. Methods discussed such as positioning with pillows to prevent supine sleep. I reviewed the impact of weight changes on sleep apnea and strongly recommended losing weight. Patient was cautioned about risks of drowsy driving until sleepiness symptoms resolve. Sleep Study - Results Type of Sleep Study: Polysomnography (COMPLETED 09-24-2022) Prior sleep studies: No Polysomnography/Home Sleep Study results: IMPRESSION: The quality of the study is good. The patient had reduced sleep efficiency due to sleep onset insomnia and a prolonged awakening in the second half of the night. The sleep architecture was abnormal for sleep fragmentation and reduced amount of time spent in slow wave sleep (N3). Respiratory monitoring showed mild obstructive sleep apnea-hypopnea (AHI = 10.0) associated with frequent arousals, oxyhemoglobin desaturation and mild hypoxia (mary jane oxygen saturation of 88%). The respiratory events occurred almost exclusively during supine sleep (supine AHI = 20.2; non-supine = 2.95). Snore was light to moderate in intensity. There was no significant periodic leg movement of sleep. Cardiac rhythm was normal sinus rhythm without significant arrhythmia. No abnormal behavior (parasomnia) observed during the night. Allergies and Home Medications Drug allergies reviewed: Yes (NKDA) Home medication list reviewed: Yes (no changes) Review of Systems Review of systems same as previous: Yes (no changes) Physical Exam Vital signs obtained and entered by: LENKA Cruz MA Blood Pressure: 124/82 (LEFT ARM) Cuff size: regular Heart Rate: 76 O2 Saturation: 96 Height: 5 ft 6 in Weight: 214 lb 3.2 oz Body Mass Index: 34.5 BMI Classification: Obese Impression and Plan 1. Obstructive Sleep Apnea-Hypopnea Syndrome, mild, with lowest oxygen saturation of 88%. Obviously this is the cause of the patients symptoms of unrefreshed sleep, and excessive daytime sleepiness. Positive pressure therapy could benefit anxiety, depression and attention deficit. After reviewing options for therapy, patient would like to see if her insurance will cover the oral jaida liance. If not, she will probably opt for CPAP therapy. She was given a list of dentists in the area who are certified to make oral appliances. She will call us once she has investigated her options and insurance coverage. 2. Obesity, unspecified. Currently patients BMI is 34.5. Obesity increases the risk of apnea, CPAP pressure requirements and overall health risks especially cardiovascular and diabetes. Thus patient is advised to lose weight. * Patient to call with choice of therapy. * Attempt to lose weight. * Avoid alcohol consumption near bedtime. * Avoid supine sleep * The patient is again cautioned about driving until sleepiness completely resolves. * Return depends upon choice of therapy. I will assess response to therapy and compliance at that time. Counseling Topics: Sleeping position, Weight loss health impact Visit Type: In Office Time Spent with Patient (minutes): 21 Provider Statement: I spent 100% of the Face to Face Visit with the patient with greater than 50% spent counseling the patient and coordination of care.
[2022-10-17 14:25] VITALS: BP 124/82
== END 2022-10-17 13:51 | disposition home or self-care (01) ==
LOC: SC 13:50
PROVIDERS: ATTEND Nurse Practitioner Family
DX: G47.33 Obstructive sleep apnea (adult) (pediatric) (principal); E66.9 Obesity, unspecified; Z68.34 Body mass index [BMI] 34.0-34.9, adult
CPT/HCPCS: 99212; 99213

== ENCOUNTER 2022-11-27 14:13 | Outpatient (CLI) | payer MEDICAID ==
--- NOTE | 2022-11-27 15:06 | XRAY Report ---
PROCEDURE: Knee 2 View BILAT INDICATIONS: BILATERAL KNEE PX TECHNIQUE: 2 views of the right and left knee(s) were acquired. COMPARISON: None. FINDINGS: Bones: No fractures or dislocations. No suspicious bony lesions. Moderate bilateral knee tricompart mental osteoarthritic degenerative changes with mild joint space narrowing and marginal osteophytosis . Soft tissues: Trace bilateral suprapatellar joint effusions. No suspicious soft tissue calcification s. IMPRESSION: Moderate bilateral knee tricompartmental osteoarthritis. Reviewed by: Samia Cronin MD, PhD on 11/27/2022 3:05 PM PST Approved by: Samia Cronin MD, PhD on 11/27/2022 3:05 PM [facility] Station ID: [id number]
== END 2022-11-27 14:14 | disposition home or self-care (01) ==
LOC: DI.N 14:13
PROVIDERS: ATTEND Family Medicine
DX: M17.0 Bilateral primary osteoarthritis of knee (principal)

== ENCOUNTER 2023-01-01 15:26 | Outpatient (CLI) | payer MEDICAID ==
--- NOTE | 2023-01-01 17:50 | XRAY Report ---
PROCEDURE: Knee 2 View BILAT INDICATIONS: BILAT KNEE PAIN TECHNIQUE: 2 views of both knees COMPARISON: Knee radiographs 11/27/2022 FINDINGS: Bones: No acute fracture or dislocation. mild-moderate medial compartment narrowing and spurring eduar aterally, mild lateral compartment narrowing present bilaterally, mild-moderate patellofemoral compar tment narrowing and spurring bilaterally. Soft tissues: No suspicious soft tissue calcifications. IMPRESSION: Degenerative changes of both knees. Reviewed by: Kulwinder Mg MD on 01/01/2023 5:49 PM PST Approved by: Kulwinder Mg MD on 01/01/2023 5:49 PM PST Station ID: [id number]
== END 2023-01-01 15:28 | disposition home or self-care (01) ==
LOC: DI.WOS 15:26
PROVIDERS: ATTEND Physician Assistant Surgical
DX: M17.0 Bilateral primary osteoarthritis of knee (principal)

== ENCOUNTER 2023-02-22 12:55 | Outpatient (CLI) | payer MEDICAID ==
--- NOTE | 2023-02-22 15:39 | DEXA Report ---
PROCEDURE: Dexa Spine and/or Hip INDICATIONS: POST MENOPAUSAL TECHNIQUE: Dual energy x-ray absorptiometry (DXA) was performed on a Whelse System. Regions measur ed are the AP Spine, femoral neck, and if needed forearm. COMPARISON: None. FINDINGS: Lumbar Spine: Bone Mineral Density 1.147 g/cm/cm,T score -0.3, normal. Left Femoral Neck: Bone Mineral Density 0.906 g/cm/cm, T score -0.9, normal. Left Hip: Bone Mineral Density 0.933 g/cm/cm,T score -0.6, normal. (T score greater or equal to -1.0: NORMAL) (T score from -1.1 to -2.4: OSTEOPENIA) (T score less than or equal to -2.5 to: OSTEOPOROSIS) Impression: Normal bone mineral density. Patients with diagnosis of osteoporosis or osteopenia should have regular bone mineral density assess ment. For those eligible for Medicare, routine testing is allowed once every 2 years. Testing frequ ency can be increased for patients who have rapidly progressing disease or for those who are receivin g medical therapy to restore bone mass. Reviewed by: Caesar Shepard on 02/22/2023 3:37 PM PDT Approved by: Caesar Shepard on 02/22/2023 3:37 PM PDT Station ID: [id number]
== END 2023-02-22 12:56 | disposition home or self-care (01) ==
LOC: DI 12:55
PROVIDERS: ATTEND Family Medicine
DX: Z78.0 Asymptomatic menopausal state (principal)

== ENCOUNTER 2023-04-23 08:00 | Outpatient (CLI) | payer MEDICAID ==
--- NOTE | 2023-04-23 17:32 | XRAY Report ---
PROCEDURE: Shoulder 3 View LT INDICATIONS: LEFT SHOULDER PAIN TECHNIQUE: 4 views of the shoulder were acquired. COMPARISON: None. FINDINGS: Bones: No fractures or dislocations. No suspicious bony lesions. Visualized ribs appear intact. Soft tissues: No suspicious soft tissue calcifications. IMPRESSION: No acute bony abnormality. If pain persists with conservative management, consider repeat radiographs in 10-14 days or cross-sectional imaging. Reviewed by: Elieser Akers MD on 04/23/2023 5:30 PM PDT Approved by: Elieser Akers MD on 04/23/2023 5:30 PM PDT Station ID: [id number]
== END 2023-04-23 23:59 | disposition home or self-care (01) ==
LOC: DI.WOS 08:00
PROVIDERS: ATTEND Physician Assistant Surgical
DX: M25.561 Pain in right knee (principal)

== ENCOUNTER 2024-01-09 14:17 | Outpatient (CLI) | payer MEDICAID ==
--- NOTE | 2024-01-10 12:06 | Mammography Report ---
BILATERAL DIGITAL SCREENING MAMMOGRAM 3D/2D: 01/09/2024 CLINICAL: Routine screening. Comparison is made to exams dated: 07/26/2022 mammogram, 08/15/2020 mammogram, 01/08/2017 mammogram, 11/2008 mammogram, 10/23/2007 mammogram, and 10/15/2006 mammogram - [facility]. There are scattered areas of fibroglandular density in both breasts (category b / 25%-50% glandular t issue). There is a focal asymmetry in the right breast at 12 o'clock anterior depth. This is more prominent. No other significant masses, calcifications, or other findings are seen in either breast. IMPRESSION: INCOMPLETE: NEEDS ADDITIONAL IMAGING EVALUATION The focal asymmetry in the right breast is indeterminate. Additional views with possible ultrasound are recommended. Based on the Tyrer Cuzick model (a risk assessment model) the patient's lifetime risk is 6.8% and her 10 year risk is 2.3%. According to the ACR, ACS, and NCCN guidelines, an annual breast MRI exam bhargav g with mammogram is recommended if the patient's lifetime risk is 20% or greater. This exam was interpreted at Station ID: [id number]. NOTE: For mammograms, a report in lay terms will be sent to the patient. Approximately 15% of breast malignancies will not be visualized mammographically. In the management of a palpable breast mass, a negative mammogram must not discourage biopsy of a clinically suspicious lesion. Electronically Signed By: Mati Vu M.D. lc/:01/10/2024 08:16:50 ACR BI-RADS Category 0: Incomplete 3340F PARENCHYMAL PATTERN: (A) - The breast(s) demonstrate(s) scattered fibroglandular densities. BI-RADS CATEGORY: (0) - 0 Mammo and [place] [id number] Immediate follow-up LATERALITY: (B)
== END 2024-01-09 14:18 | disposition home or self-care (01) ==
LOC: DI.N 14:17
DX: Z12.31 Encounter for screening mammogram for malignant neoplasm of breast (principal); R92.8 Other abnormal and inconclusive findings on diagnostic imaging of breast; R92.323 Mammographic fibroglandular density, bilateral breasts

== ENCOUNTER 2024-02-17 12:29 | Outpatient (CLI) | payer MEDICAID ==
--- NOTE | 2024-02-18 10:33 | Mammography Report ---
UNILATERAL RIGHT DIGITAL DIAGNOSTIC MAMMOGRAM 3D/2D WITH SPOT COMPRESSION: 02/17/2024 CLINICAL: Patient returns today to evaluate a focal asymmetry in the right breast. Comparison is made to exams dated: 01/09/2024 mammogram, 07/26/2022 mammogram, 08/15/2020 mammogram, and 01/08/2017 mammogram - [facility]. There are scattered areas of fibroglandular density in the right breast (category b / 25%-50% glandul ar tissue). There is a focal asymmetry in the right breast at 12 o'clock anterior depth. This is seen in additio nal views. No other significant masses or calcifications are seen in the breast. IMPRESSION: INCOMPLETE: NEEDS ADDITIONAL IMAGING EVALUATION The focal asymmetry in the right breast is indeterminate. A targeted ultrasound is recommended and will immediately follow. Based on the Tyrer Cuzick model (a risk assessment model) the patient's lifetime risk is 6.8% and her 10 year risk is 2.3%. According to the ACR, ACS, and NCCN guidelines, an annual breast MRI exam bhargav g with mammogram is recommended if the patient's lifetime risk is 20% or greater. This exam was interpreted at Station ID: [id number]. NOTE: For mammograms, a report in lay terms will be sent to the patient. Approximately 15% of breast malignancies will not be visualized mammographically. In the management of a palpable breast mass, a negative mammogram must not discourage biopsy of a clinically suspicious lesion. Electronically Signed By: Ismael Wills M.D. slc/:02/17/2024 15:01:28 ACR BI-RADS Category 0: Incomplete 3340F PARENCHYMAL PATTERN: (A) - The breast(s) demonstrate(s) scattered fibroglandular densities. BI-RADS CATEGORY: (0) - 0 Ultrasound [id number] Immediate follow-up LATERALITY: (B)
--- NOTE | 2024-02-18 10:33 | Ultrasound Report ---
LIMITED ULTRASOUND OF RIGHT BREAST AND AXILLA: 02/17/2024 CLINICAL: Patient returns today to evaluate a focal asymmetry in the right breast. Comparison is made to exams dated: 01/09/2024 mammogram, 07/26/2022 mammogram, and 08/15/2020 mammogram - [facility]. Color flow ultrasound of the right breast 11-1 o'clock, and axilla regions was performed. Boogie scale images of the real-time examination were reviewed. There is a 1 cm x 0.8 cm x 0.6 cm oval mass in the right breast at 11 o'clock anterior depth 5 cm fro m the nipple. This oval mass is hypoechoic. This correlates with mammography findings. There are c alcifications within the mass. Color flow imaging demonstrates that there is vascularity present. No significant abnormalities were seen sonographically in the right axilla. IMPRESSION: SUSPICIOUS OF MALIGNANCY The 1 cm x 0.8 cm x 0.6 cm oval mass in the right breast has a differential diagnosis of a fibroadeno ma and is at a low suspicion for malignancy. An ultrasound guided biopsy is recommended. No enlarged right axillary lymph nodes. Exam findings were discussed with the patient. Joint decision making to proceed to biopsy. This exam was interpreted at Station ID: [id number]. Electronically Signed By: Ismael Wills M.D. slc/:02/17/2024 15:05:20 Ultrasound BI-RADS: 4a Low suspicion for malignancy BI-RADS CATEGORY: (4a) - Low Susp Biopsy [id number] Immediate follow-up LATERALITY: (R)
== END 2024-02-17 12:30 | disposition home or self-care (01) ==
LOC: DI 12:29
PROVIDERS: ATTEND Family Medicine
DX: N63.11 Unspecified lump in the right breast, upper outer quadrant (principal); R92.321 Mammographic fibroglandular density, right breast

== ENCOUNTER 2024-02-26 07:47 | Outpatient (CLI) | payer MEDICAID ==
[~2024-02-26 07:47] MED LIST: LIDOCAINE 1%-EPI 1:100000 20 ML MDV ONE; LIDOCAINE-MPF 1% 5 ML VIAL ONE
[2024-02-26] MEDS: LIDOCAINE-MPF 1% 5 ML VIAL TD ONE (10:00)
[2024-02-26] MEDS: LIDOCAINE 1%-EPI 1:100000 20 ML MDV SUBQ ONE (10:01)
--- NOTE | 2024-02-27 09:57 | Mammography Report ---
UNILATERAL RIGHT DIGITAL DIAGNOSTIC MAMMOGRAM - RIGHT BREAST POST-PROCEDURE IMAGING FOR MARKER PLACEM ENT: 02/26/2024 CLINICAL: Post right breast ultrasound biopsy clip placement imaging. Comparison is made to exams dated: 02/17/2024 ultrasound, 02/17/2024 mammogram, 01/09/2024 mammogram, an d 07/26/2022 mammogram - [facility]. There are scattered areas of fibroglandular density in the right breast (category b / 25%-50% glandul ar tissue). Post biopsy mammogram demonstrates hydromark biopsy clip at the medial aspect of the targeted mass. IMPRESSION: POST PROCEDURE MAMMOGRAM FOR MARKER PLACEMENT Post biopsy mammogram demonstrates hydromark biopsy clip at the medial aspect of the targeted mass. Dena guerrero see separately dictated ultrasound guided biopsy report for additional details and pathology. Based on the Tyrer Cuzick model (a risk assessment model) the patient's lifetime risk is 6.8% and her 10 year risk is 2.3%. According to the ACR, ACS, and NCCN guidelines, an annual breast MRI exam bhargav g with mammogram is recommended if the patient's lifetime risk is 20% or greater. This exam was interpreted at Station ID: [id number]. NOTE: For mammograms, a report in lay terms will be sent to the patient. Approximately 15% of breast malignancies will not be visualized mammographically. In the management of a palpable breast mass, a negative mammogram must not discourage biopsy of a clinically suspicious lesion. Electronically Signed By: Nona Macdonald M.D., Ph.D. eb/:02/26/2024 14:27:20 ACR BI-RADS Category Post-procedure mammogram for marker placement PARENCHYMAL PATTERN: (A) - The breast(s) demonstrate(s) scattered fibroglandular densities. BI-RADS CATEGORY: () - Unspecified - other recall n/a LATERALITY: (B)
--- NOTE | 2024-03-03 10:47 | Ultrasound Report ---
ULTRASOUND GUIDED BIOPSY RIGHT BREAST WITH MARKING DEVICE INSERTED: 02/26/2024 CLINICAL: Right breast mass. PATIENT CONSENT: Risks (minor bleeding, infection, vasovagal reaction and repeat procedure), benefits and alternatives were explained to the patient and written informed consent was obtained. Correlation is made to exams dated: 02/17/2024 ultrasound, 02/17/2024 mammogram, 01/09/2024 mammogram, mammogram, 08/15/2020 mammogram, and 01/08/2017 mammogram - [facility]. An ultrasound guided biopsy using real-time ultrasound was performed for the mass located in the righ t breast at 11 o'clock posterior depth 5 cm from the nipple. The skin was prepped in the usual lolis r. Local anesthetic was administered to the access site. The abnormality was approached from the la teral aspect. A 16 gauge biopsy needle was placed adjacent to the abnormality through an introducer device under ultrasound guidance. Once the needle was documented to be in the correct location, salvatore n specimens were obtained using the D2C Gamesquee biopsy device. The patient received additional local ane sthetic during the procedure. A hydromark clip was inserted into the biopsy cavity. A sterile dress ing was applied to the access site. Post procedure imaging demonstrates the location device at the t argeted area. The specimens were sent to the laboratory for pathological analysis. IMPRESSION: ULTRASOUND GUIDED BIOPSY MALIGNANT Ultrasound guided biopsy of the mass in the right breast at 11 o'clock posterior depth 5 cm from the nipple was successful. Pathology indicates malignant invasive ductal carcinoma (ID). Pathology resu lts are concordant with imaging findings. Oncologic/surgical consultation recommended. This exam was interpreted at Station ID: [id number]. Nona Macdonald M.D., Ph.D. Mati Vu M.D. ,lc/:03/02/2024 11:29:49 BI-RADS CATEGORY: () - Unspecified - other recall n/a LATERALITY: (B)
== END 2024-02-26 07:48 | disposition home or self-care (01) ==
LOC: DI 07:47
PROVIDERS: ATTEND Family Medicine
DX: C50.411 Malignant neoplasm of upper-outer quadrant of right female breast (principal); Z17.0 Estrogen receptor positive status [ER+]
CPT/HCPCS: 19083

== ENCOUNTER 2024-03-02 14:09 | Outpatient (CLI) | payer MEDICAID ==
[2024-03-02 14:21] LABS: BASOPHILS # (AUTO) 0.1 10^3/uL (0.0-0.1); EOSINOPHILS # (AUTO) 0.2 10^3/uL (0.0-0.7); EOSINOPHILS % (AUTO) 3.6 %; HCT - HEMATOCRIT 45.2 % (37.0-47.0); HGB - HEMOGLOBIN 14.6 g/dL (12.0-16.0); LYMPHOCYTES # (AUTO) 1.6 10^3/uL (1.5-3.5); LYMPHOCYTES % (AUTO) 27.6 %; MEAN CORPUSCULAR HEMOGLOBIN 32.2 pg (27.0-31.0); MEAN CORPUSCULAR HGB CONC 32.3 g/dL (32.0-36.0); MEAN CORPUSCULAR VOLUME 99.8 fL (81.0-99.0); MEAN PLATELET VOLUME 9.8 fL (7.9-10.8); MONOCYTES # (AUTO) 0.3 10^3/uL (0.0-1.0); MONOCYTES % (AUTO) 5.6 %; NEUTROPHILS # (AUTO) 3.7 10^3/uL (1.5-6.6); PLT - PLATELET COUNT 235 10^3/uL (130-450); RED BLOOD COUNT 4.53 10^6/uL (4.20-5.40); RED CELL DISTRIBUTION WIDTH 12.4 % (12.0-15.0); WHITE BLOOD COUNT 5.9 x10^3/uL (4.8-10.8)
[2024-03-02 14:35] LABS: ALBUMIN 4.1 g/dL (3.2-5.5); ALBUMIN/GLOBULIN RATIO 1.7 (1.0-2.2); ALKALINE PHOSPHATASE 62 IU/L (42-121); ALT ALANINE AMINOTRANSFERASE 55 IU/L (10-60); AST ASPARTATE AMINOTRANSFERASE 38 IU/L (10-42); BILIRUBIN,TOTAL 0.8 mg/dL (0.2-1.0); BUN - BLOOD UREA NITROGEN 8 mg/dL (6-20); CALCIUM 9.7 mg/dL (8.5-10.3); CARBON DIOXIDE - CO2 26 mmol/L (21-32); CHLORIDE 107 mmol/L (101-111); CHOL/HDL RATIO 5.8 (<4.4); CHOLESTEROL 227 mg/dL; CREATININE 0.8 mg/dL (0.6-1.3); GFR - MDRD 74 (>89); GLUCOSE 111 mg/dL (74-104); HDL CHOLESTEROL 39 mg/dL; LDL CHOLESTEROL,CALCULATED 125 mg/dL; LDL/HDL RATIO 3.2 (<4.4); POTASSIUM 4.5 mmol/L (3.5-4.5); SODIUM 140 mmol/L (135-145); TOTAL PROTEIN 6.5 g/dL (6.4-8.9); TRIGLYCERIDES 315 mg/dL (48-352); VLDL CHOLESTEROL 63 mg/dL
[2024-03-02 14:49] LABS: THYROID STIMULATING HORMONE 2.68 uIU/mL (0.34-5.60)
[2024-03-02 20:43] LABS: ESTIMATED AVERAGE GLUCOSE 117 mg/dL (70-100); HEMOGLOBIN A1c% 5.7 % (4.27-6.07)
== END 2024-03-02 14:10 | disposition home or self-care (01) ==
LOC: LAB 14:09
PROVIDERS: ATTEND Family Medicine
DX: M17.0 Bilateral primary osteoarthritis of knee (principal); Z78.0 Asymptomatic menopausal state; G62.9 Polyneuropathy, unspecified; G47.33 Obstructive sleep apnea (adult) (pediatric); R73.9 Hyperglycemia, unspecified; E78.2 Mixed hyperlipidemia; Z98.84 Bariatric surgery status; E03.9 Hypothyroidism, unspecified
CPT/HCPCS: 36415; 80053; 80061; 83036; 83721; 84443; 85025

== ENCOUNTER 2024-04-06 08:02 | Day surgery (SDC) | payer MEDICAID ==
[~2024-04-06 08:02] MED LIST changes: -LIDOCAINE 1%-EPI 1:100000 20 ML MDV ONE; +ceFAZolin 2 GM VIAL ONE
[2024-04-06] MEDS: ACETAMINOPHEN 500 MG TABLET PO ONE (10:21)
[2024-04-06] MEDS: ALPRAZolam 0.25 MG TABLET PO ONE (10:21)
[2024-04-06] MEDS ORDERED: fentaNYL 100 MCG/2 ML VIAL ONE (11:57)
[2024-04-06] MEDS ORDERED: PROPOFOL 200 MG/20 ML VIAL IVP ONE (11:57)
[2024-04-06] MEDS ORDERED: MIDAZOLAM 2 MG/2 ML VIAL ONE (11:57)
[2024-04-06] MEDS ORDERED: LIDOCAINE-MPF 1% 5 ML VIAL ONE (12:43)
[2024-04-06] MEDS ORDERED: LIDOCAINE 1%-EPI 1:100000 20 ML MDV ONE ×2 (12:51→17:07)
[2024-04-06] MEDS ORDERED: BUPIVACAINE 0.5% PF 10 ML VIAL ONE ×2 (12:51→17:07)
--- NOTE | 2024-04-06 13:14 | ANESTHESIA ---
Pre-Anesthesia VS, & Labs - Diagnosis right breast cancer - Procedure right breast lumpectomy with wire localization and port placement Vital Signs: Temp Pulse Resp BP Pulse Ox O2 Flow Rate 36.4 C L 69 18 140/98 H 98 04/06/24 08:27 04/06/24 08:27 04/06/24 08:27 04/06/24 08:27 04/06/24 08:27 Height: 5 ft 6 in Weight (kg): 93 kg Body Mass Index: 33.0 BMI Classification: Obese - NPO >8 hours - Is Patient ?: No Home Medications and Allergies Home Medications: Ambulatory Orders Calcium Carbonate [Calcium] 600 mg PO DAILY 03/30/24 Meloxicam, Submicronized [Meloxicam] 15 mg PO DAILY 12/20/22 Omeprazole 40 mg PO DAILY 12/20/22 buPROPion [Wellbutrin Sr] 100 mg PO BID 12/20/22 methocarbamoL [Methocarbamol] 750 mg PO BID PRN 12/20/22 traZODone [Desyrel] 50 mg PO HS 12/20/22 Calcium Carbonate [Calcium] 600 mg PO DAILY 03/30/24 Allergies/Adverse Reactions: Allergies Allergy/AdvReac Type Severity Reaction Status Date / Time No Known Drug Allergies Allergy Verified 04/06/24 08:18 Anes History & Medical History - Anesthetic History Anesthesia Complications: reports: No previous complications Family history of Anesthesia Complications: Denies Family history of Malignant Hyperthermia: Denies - Medical History Cardiovascular: reports: High cholesterol, Murmur Pulmonary: reports: Sleep apnea (does not use cpap) Gastrointestinal: reports: GERD, Colon polyps Urinary: reports: None Neuro: reports: None Musculoskeletal: reports: Osteoarthritis Endocrine/Autoimmune: reports: None Blood Disorders: reports: Anemia Skin: reports: Rosacea Smoking Status: Former smoker Psychosocial: reports: Alcohol (weekly 6 drinks) History of Cancer?: Yes - Surgical History General: reports: Gastric surgery Gynecologic: reports: section, Tubal ligation Results - Echo Results Echo Results: Report reviewed Exam General: Alert, Oriented x3, Cooperative, No acute distress Dental: Poor dentition Mouth Openin Fingerbreadth Neck Mobility: Normal Mallampati classification: II Thyromental Distance: 4-6 cm Mental/Cognitive Status: Alert/Oriented X3, Normal for patient Plan Anesthesia Type: General Consent for Procedure(s) Verified and Reviewed: Yes Code Status: Attempt Resuscitation ASA classification: 3-Severe systemic disease Is this case an emergency?: No
[2024-04-06] MEDS ORDERED: HYDROmorphone 0.5 MG/0.5 ML SYRINGE IVP PRN ×2 (14:19→20:01)
[2024-04-06] MEDS ORDERED: NALOXONE 0.4 MG/ML VIAL IVP PRN (14:19)
[2024-04-06] MEDS ORDERED: ONDANSETRON 4 MG/2 ML VIAL IVP PRN (14:19)
[2024-04-06] MEDS ORDERED: fentaNYL 100 MCG/2 ML VIAL IVP PRN (14:19)
[2024-04-06] MEDS ORDERED: MORPHINE 2 MG/ML CARPUJECT IVP PRN (14:19)
[2024-04-06] MEDS ORDERED: ATROPINE ABBOJECT 1 MG/10 ML SYRINGE IVP PRN (14:19)
[2024-04-06] MEDS ORDERED: LACTATED RINGERS 1,000 ML IV SCH (15:00)
[2024-04-06] MEDS: LIDOCAINE-MPF 1% 5 ML VIAL TD ONE (15:00)
[2024-04-06] MEDS: LIDOCAINE 1%-EPI 1:100000 20 ML MDV SUBQ ONE ×2 (17:12)
[2024-04-06] MEDS: BUPIVACAINE 0.5% PF 10 ML VIAL IM ONE ×2 (17:12)
[2024-04-06] MEDS ORDERED: ePHEDrine 50 MG/ML VIAL IVP ONE (17:14)
[2024-04-06] MEDS ORDERED: DEXAMETHASONE 4 MG/ML VIAL ONE (17:22)
[2024-04-06] MEDS ORDERED: ONDANSETRON 4 MG/2 ML VIAL ONE ×2 (17:22→20:37)
[2024-04-06] MEDS ORDERED: HYDROmorphone 1 MG/ML CARPUJECT ONE (18:02)
[2024-04-06] MEDS ORDERED: SEVOFLURANE 250 ML LIQUID INH ONE (19:07)
--- NOTE | 2024-04-06 20:10 | OPERATIVE REPORT ---
Operative Report - General Procedure Date: 04/06/24 Planned Procedure: right wire localized lumpectomy, right sentinel lymph node biospy, PAC placement with ultrasound and fluoroscopy guidance Pre-Op Diagnosis: invasive ductal carcinoma Procedure Performed: right wire localized lumpectomy, right sentinel lymph node biospy, R IJ PAC placement with ultrasound and fluoroscopy guidance Post Op Diagnosis: invasive ductal carcinoma - Procedure Note Primary Surgeon: Dr. Elham Chapin Anesthesia Provider: Charisse Foster CRNA Anesthesia Technique: General LMA Pathology: 1. right lumpectomy 2. re excision of superior margin 3. re excision of lateral margin 4. re excision of inferior margin 5. sentinel lymph node #1 6. sentinel lymph node #2 Estimated Blood Loss (mL): 100 Drain/Tube Type: Craig Bianchi round drain (right breast) Indications: The patient has been told that she has had lumpy bumpy breast throughout her life. She had not noticed any change in her breast when she had her mammogram but there was an abnormal finding. Follow-up studies including a biopsy revealed invasive ductal carcinoma which is HER2 positive. The patient has met with medical oncology, Dr. Luke Alfaro, who recommended port placement for adjuvant chemotherapy. The patient was also seen by me and evaluated in the clinic. We discussed lumpectomy versus mastectomy and sentinel lymph node biopsy. Risks, benefits, and alternatives of lumpectomy with sentinel lymph node biopsy include bleeding, infection, damage to surrounding structures, positive margin requiring reexcision, lymphedema, and the need for further surgeries or procedures. Portacatheter placement also carries with it the risk for pneumothorax, bleeding, infection, and dysfunction of the port requiring removal or replacement. The patient voiced understanding, her questions were answered, and she signed a consent for right lumpectomy, sentinel lymph node biopsy, and portacatheter placement in the clinic. Findings: 1. right lumpectomy, Oriented short superior, long lateral, double anterior 2. re excision of superior margin, Oriented short new superior margin, long lateral, double anterior 3. re excision of lateral margin, Oriented short superior, long new lateral margin, double anterior 4. re excision of inferior margin, Oriented short new inferior margin, long lateral, double anterior 5. The clip was not identified in the lumpectomy or reexcision specimens on portable x-ray 5. sentinel lymph node #1, [id number] 6. sentinel lymph node #2, [id number] Complications: Initial wire placement was not successful, and 2 additional wires were placed, significantly delaying the start of this patient's surgery. There were no intraoperative complications - Other Other Information/Narrative: The patient was taken to the operative suite and placed in the supine position preoperative ERAS medications given. Preoperative antibiotics given. An ultrasound was used to verify the right internal jugular vein was widely patent. The patient was then prepped and draped in the usual, sterile fashion. Next, a sterile ultrasound probe was used to visualize the right internal jugula r vein local anesthetic was injected into the skin and subcutaneous tissues overlying this vessel and an 11 blade scalpel was used to make a small skin vanessa. Next, under direct ultrasound guidance, a Cook needle was used to gain access to the right internal jugular vein. This was successful on the first attempt. There was excellent return of dark red nonpulsatile blood. A guidewire was passed through the Cook needle without resistance. Fluoroscopy was used to verify the position of the wire. Ultrasound was also used to verify the position of the wire. Next, attention was turned to the chest. The location was chosen on the right anterior chest wall for the portacatheter to sit. The skin and subcutaneous tissues in this area were anesthetized with local as was the path which the catheter would follow up to the neck incision. A 15 blade scalpel was used to make a 2 cm incision in the which was carried down through the skin and subcutaneous tissues to the level of the clavipectoral fascia. A pocket was made with blunt dissection to accommodate the port. Port easily fit within the pocket. 2 interrupted sutures of 3-0 PDS were placed through the port to tack it to the clavipectoral fascia. These were tied into place and then the port was tunneled from the inferior chest wall incision to the superior neck incision. Next, the catheter was cut to the appropriate length under direct fluoroscopic guidance. A dilator and sheath were passed over the guidewire under direct fluoroscopic guidance and the dilator and guidewire were removed leaving only the breakaway sheath in place. The catheter was passed through the sheath and the sheath was broken away. The catheter was the only thing that remained within the vessel. Fluoroscopy confirmed that the catheter tip was in good position and that there were no kinks at the neck. The catheter flushed and tim easily. Next, 3-0 Vicryl was used in an interrupted fashion to reapproximate the deep dermal tissues at the chest incision. Then, 4-0 Monocryl was used in an interrupted subcuticular fashion to reapproximate the skin at the neck incision and in a running subcuticular fashion to reapproximate the skin at the chest incision. A sterile dressing of skin glue was placed. The port was flushed with 2 mL 1000 units/mL heparinized saline. A postoperative chest x-ray is pending at this time. Next, attention was turned to the patient's right breast. An incision was made which incorporated the medial wire, following the patient's skin folds, at the 12 o'clock position, N + 2. Skin flaps were raised superiorly and inferiorly to the incision. The dissection was carried down to the thick part of the wire using electrocautery. At this point, serrated scissors were used to perform a lumpectomy staying approximately 1 cm away from the wire in superiorly, medially, anteriorly, and posteriorly, and 2 cm away from the wire laterally and inferiorly. The lumpectomy specimen was removed and oriented with suture on the back table. Mammography was not available to image the specimen, so portable x-ray was taken. The clip was not noted within the specimen. The edges of the lumpectomy cavity were inspected and there were palpable abnormalities in the superior, lateral, and inferior margins. Each of these was excised and imaged, but the clip was not identified.. Hemostasis was confirmed. The lumpectomy cavity was irrigated with warm normal saline. A 15 Albanian KYAW drain was placed in the lumpectomy cavity due to its size. This was sewn into place using a 3-0 Vicryl suture. The deep dermal tissues were closed with 3-0 Vicryl in an interrupted fashion. The skin was closed with 4-0 Monocryl in a running subcuticular fashion. Then, attention was then turned to the right axilla. An incision was made just inferior to the hairline at the area of greatest uptake using the neoprobe device. The incision was made using a 15 blade scalpel and carried down through the skin and subcutaneous tissues to the level of the axillary fascia. The fascia was incised. The sentinel lymph nodes were identified using the neoprobe. Clips were used proximally and distally to the nodes and the nodes were removed the first node had a maximal reading of 773 on the back table and was noted to be markedly enlarged. The second sentinel lymph node measured 1727 on the back table. On further inspection, there were no additional lymph nodes that had at least 10% uptake, 173, and no additional abnormal palpable nodes. Hemostasis was confirmed in the axilla. The deep dermal tissues were closed with 3-0 Vicryl. A 4-0 Monocryl running stitch was placed in a subcuticular fashion. Skin glue was placed over each of the incisions. The patient tolerated the procedure well. There were no complications. She was extubated in the operating room and transferred to the recovery room in stable condition. Synoptic Breast SNB - Jackson Node Biopsy Operation performed with curative intent: Yes Tracer(s) used to identify sentinel nodes in the upfront surgery (non- neoadjuvant) setting (select all that apply): Radioactive tracer Tracer(s) used to identify sentinel nodes in the neoadjuvant setting (select all that apply): N/A All nodes (colored or non-colored) present at the end of a dye-filled lymphatic channel were removed: N/A All significantly radioactive nodes were removed: Yes All palpably suspicious nodes were removed: Yes Biopsy-proven positive nodes marked with clips prior to chemotherapy were identified and removed: N/A
--- NOTE | 2024-04-06 20:42 | XRAY Report ---
PROCEDURE: Chest for Line Placement INDICATIONS: R IJ PAC placement TECHNIQUE: One view of the chest was acquired. COMPARISON: None. FINDINGS: Surgical changes and devices: A right portacatheter terminates in the proximal SVC. Right chest wall clips. Lungs and pleura: Low lung volumes. No dense consolidation or pleural effusion. Interstitium is mild ly prominent Mediastinum: Normal heart size Bones and chest wall: Unremarkable IMPRESSION: Right portacatheter terminates in the proximal SVC. Low lung volumes are mildly prominent interstitium, possibly due to vascular crowding versus mild sandra ma. Consider future imaging surveillance to assess for resolution. Reviewed by: Mati uV MD on 04/06/2024 8:41 PM PDT Approved by: Mati Vu MD on 04/06/2024 8:41 PM PDT Station ID: [id number]
[2024-04-06] MEDS: ONDANSETRON 4 MG/2 ML VIAL IVP PRN (20:43)
[2024-04-06] MEDS: LACTATED RINGERS 1,000 ML IV ONE (20:44)
[2024-04-06] MEDS: ACETAMINOPHEN 325 MG TABLET PO PRN (21:30)
[2024-04-06] MEDS: oxyCODONE 5 MG TABLET PO PRN (21:30)
[2024-04-06 21:40] VITALS: BP 114/75; O2SAT 95
--- NOTE | 2024-04-07 11:50 | XRAY Report ---
PROCEDURE: OR Port-A-Cath INDICATIONS: PORT-A-CATH PLACEMENT FLUORO TIME: 0.1 MIN TECHNIQUE: Real time fluoroscopy was performed of the thorax. COMPARISON: None. FINDINGS: Intraoperative fluoroscopic image shows right chest wall Port-A-Cath tip is in SVC. IMPRESSION: Fluoroscopy guidance was provided intraoperatively for right chest wall Port-A-Cath placement with th e tip projecting in the expected location of SVC. Reviewed by: Antonio Carrillo MD on 04/07/2024 11:49 AM PDT Approved by: Antonio Carrillo MD on 04/07/2024 11:49 AM PDT Station ID: [id number]
--- NOTE | 2024-04-08 08:51 | Mammography Report ---
UNILATERAL RIGHT DIGITAL DIAGNOSTIC MAMMOGRAM 3D/2D WITH MEDIOLATERAL OBLIQUE: 04/06/2024 CLINICAL: Right breast wire placement. Comparison is made to exam dated: 02/26/2024 ultrasound biopsy - [facility]. There are scattered areas of fibroglandular density in the right breast (category b / 25%-50% glandul ar tissue). There is a marker clip in the appropriate position in the right breast at 11 o'clock anterior depth. 3 localizing wires are noted. The 2 lateral wire tips are lateral to the marker cllip. The medial wire tip is passing and adjacent to the wire clip. IMPRESSION: POST PROCEDURE MAMMOGRAM FOR MARKER PLACEMENT Three localizing wires placed adjacent to the biopsy marker clip in the right breast anterior depth. Follow-up with ACR/ACS guidelines. This exam was interpreted at Station ID: [id number]. NOTE: For mammograms, a report in lay terms will be sent to the patient. Approximately 15% of breast malignancies will not be visualized mammographically. In the management of a palpable breast mass, a negative mammogram must not discourage biopsy of a clinically suspicious lesion. Electronically Signed By: Antonio Carrillo M.D. jl/:04/07/2024 09:52:38 ACR BI-RADS Category Post-procedure mammogram for marker placement PARENCHYMAL PATTERN: (A) - The breast(s) demonstrate(s) scattered fibroglandular densities. BI-RADS CATEGORY: () - Unspecified - other no recall LATERALITY: (B)
--- NOTE | 2024-04-08 08:51 | Ultrasound Report ---
ULTRASOUND GUIDED WIRE LOCALIZATION RIGHT BREAST WITH POST DIGITAL MAMMOGRAPHIC IMAGIN04/06/2024 CLINICAL: Right breast wire localization. Correlation is made to exams dated: 04/06/2024 mammogram, 02/26/2024 ultrasound biopsy, 02/26/2024 mammo gram, 02/17/2024 ultrasound, 02/17/2024 mammogram, and 01/09/2024 mammogram - [facility]. A wire localization using ultrasound guidance was performed for the marker clip located in the right breast at 11 o'clock middle depth. This was described on the previous ultrasound report. The skin w as prepped in the usual manner. Local anesthetic was administered to the access site. The localizat ion was approached from both the medial and lateral aspects. Three wires were inserted adjacent to t he marker under ultrasound guidance. The patient received additional local anesthetic during the pro cedure. A sterile dressing was applied to the access site. Post placement digital mammographic imag ing demonstrates the tips pass through adjacent to the marker. IMPRESSION: WIRE LOCALIZATION Wire localization for the marker clip in the right breast at 11 o'clock middle depth with placement o f three wires was successful with no apparent post procedure complications. This exam was interpreted at Station ID: [id number]. Antonio crisostomo/:04/07/2024 09:46:15 Entry: louie - 04/08/2024 08:46:19 BI-RADS CATEGORY: () - RECOMMENDATION: (ADDMAM) - Recommend additional mammographic views. recall n/a LATERALITY: (B)
--- NOTE | 2024-04-10 09:56 | XRAY Report ---
SPECIMEN RIGHT BREAST- - RIGHT BREAST POST LUMPECTOMY: 04/09/2024 CLINICAL: Right breast specimen. Correlation is made to exams dated: 04/06/2024 localization, 04/06/2024 mammogram, 02/26/2024 mammogram, 02/17/2024 mammogram, and 01/09/2024 mammogram - [facility]. Four lumpectomy specimens were imaged for the previous biopsy site located in the right breast at 11 o'clock middle depth. This was described on the previous mammography and ultrasound reports. IMPRESSION: SPECIMEN The imaged specimens include the distal portion of the localization wires and do not include biopsy c lip. This exam was interpreted at Station ID: [id number]. Antonio crisostomo/aileen:04/10/2024 08:12:00 Mammogram recall n/a B
== END 2024-04-06 22:01 | disposition home or self-care (01) ==
LOC: SDS 08:02 → MS3 19:43 → SDS 22:01
PROVIDERS: ATTEND Surgery
PROC: 0HBT0ZZ Excision of Right Breast, Open Approach (ICD-10-PCS; principal; 2024-04-06 13:00)
PROC: 07B50ZX Excision of Right Axillary Lymphatic, Open Approach, Diagnostic (ICD-10-PCS; 2024-04-06 13:00)
DX: C50.411 Malignant neoplasm of upper-outer quadrant of right female breast (principal); C77.3 Secondary and unspecified malignant neoplasm of axilla and upper limb lymph nodes; Z17.0 Estrogen receptor positive status [ER+]; E66.9 Obesity, unspecified; Z68.33 Body mass index [BMI] 33.0-33.9, adult; Z87.891 Personal history of nicotine dependence; G47.33 Obstructive sleep apnea (adult) (pediatric)
CPT/HCPCS: 19285; 19301; 36561; 38525; 38900; 77065; A9270; C1788; J1170; J3490; J7120

== ENCOUNTER → 2024-05-25 | Outpatient (CLI) | payer MEDICAID | LOC: PC 08:00 | PROVIDERS: ATTEND Nurse Practitioner Adult Health | DX: Z51.5 Encounter for palliative care (principal); C50.911 Malignant neoplasm of unspecified site of right female breast; F90.9 Attention-deficit hyperactivity disorder, unspecified type; F06.4 Anxiety disorder due to known physiological condition; R19.7 Diarrhea, unspecified; R53.83 Other fatigue; Z17.0 Estrogen receptor positive status [ER+]; Z71.89 Other specified counseling | CPT/HCPCS: 99205 ==

== ENCOUNTER 2024-07-12 13:41 | Emergency (ER) | payer MEDICAID ==
[2024-07-12 14:16] LABS: RAPID STREP SCREEN Negative (Negative)
--- NOTE | 2024-07-12 14:53 | ED Physician Documentation ---
PD HPI URI - Stated complaint Stated Complaint: SORE THROAT - Chief complaint Chief Complaint: Heent - History obtained from History obtained from: Patient - History of Present Illness Timing - onset: Today, Yesterday Timing duration: Days (1-2) Timing details: Gradual onset, Still present Associated symptoms: Sore throat. No: Fever, Chills, Nasal congestion, Swollen nodes, Dry cough Contributing factors: No: Sick contact PD PAST MEDICAL HISTORY - Past Medical History Past Medical History: Yes Cardiovascular: High cholesterol, Murmur Respiratory: Sleep apnea Neuro: Peripheral neuropathy Endocrine/Autoimmune: None GI: GERD, Colon polyps CLOUD DEVELOPER: Breast cancer (getting chemo tomorrow and her oncologist wanted to ensure no bacterial infection. ) : None HEENT: Chronic vision loss, Chronic sinusitis Psych: Depression, Anxiety, ADD/ADHD, Post traumatic stress disorder Musculoskeletal: Osteoarthritis Derm: Rosacea - Past Surgical History Past Surgical History: Yes General: Gastric surgery /CLOUD DEVELOPER: section, Tubal ligation - Present Medications Home Medications: Ambulatory Orders Medication Instructions Recorded Confirmed Meloxicam, Submicronized 15 mg PO PRN PRN 12/20/22 06/01/24 [Meloxicam] Omeprazole 40 mg PO DAILY 12/20/22 06/01/24 buPROPion [Wellbutrin Sr] 100 mg PO BID 12/20/22 06/01/24 traZODone [Desyrel] 50 mg PO HS 12/20/22 06/01/24 Loperamide [Imodium] 2 mg PO ONCE PRN #120 cap 04/15/24 Ondansetron [Ondansetron Odt] 8 mg PO Q8H PRN #90 tab 04/15/24 methocarbamoL [Methocarbamol] 750 mg PO BID #60 tablet 04/15/24 OLANZapine [Olanzapine] 5 mg PO QPM 04/24/24 06/01/24 dexAMETHasone [Decadron] 8 mg PO DAILY 04/24/24 06/01/24 Lidocaine/Prilocain 2.5% Cream 1 applic TOP PRN PRN 05/07/24 06/01/24 [Emla 2.5% Cream] Prochlorperazine Maleate 10 mg PO Q4HR PRN 05/07/24 06/01/24 [Compazine] Cholecalciferol [Vitamin D3] 400 unit PO DAILY 05/11/24 06/01/24 HYDROcod/ACETAM 5/325 [[place]chard 5/325] 1 tab PO PRN PRN 05/18/24 06/01/24 Doxycycline [Vibramycin] 100 mg PO BID 06/01/24 06/01/24 armodafiniL [Nuvigil] 150 mg PO DAILY 06/01/24 06/01/24 metroNIDAZOLE 0.75% GEL [Flagyl 1 applic TOP BID 06/01/24 06/01/24 Gel] metroNIDAZOLE [Metrocream] 45 gm TP PRN PRN 06/01/24 06/01/24 polyethylene glycoL 3350(BULK) 17 gm PO PRN PRN 06/01/24 06/01/24 [Miralax] - Allergies Allergies/Adverse Reactions: Allergies Allergy/AdvReac Type Severity Reaction Status Date / Time No Known Drug Allergies Allergy Verified 07/12/24 13:51 - Social History Does the pt smoke?: No Smoking Status: Former smoker Does the pt drink ETOH?: Yes Does the pt have substance abuse?: No - Immunizations Immunizations are current?: Yes - POLST Patient has POLST: No PD ED PE NORMAL - Vitals Vital signs reviewed: Yes - General General: Alert and oriented X 3, No acute distress, Well developed/nourished - HEENT HEENT: Ears normal, Moist mucous membranes, Other (minimal redness around uvula. Else negative. No exudate. ) - Neck Neck: Supple, no meningeal sign, No adenopathy Results - Vitals Vitals: Oxygen O2 Source Room air - Labs Labs: Microbiology 07/12/24 14:00 Group A Strep Throat Culture - Preliminary Throat Laboratory Tests 07/12/24 14:00 Group A Strep Rapid Negative PD Medical Decision Making - ED course Complexity details: considered differential (sorethroat without other URI sympotmsl No fever. Exam not appearing strep like. Rapid strep negative. Await culture. ), d/w patient ED course: pt with breast cancer and getting chemo tomorrow. Her Oncologist wanted to ensure no bacterial infection/bad infection, and so referred her to ED when she called to ask about the sore throat. Departure - Departure Disposition: 01 Home, Self Care Clinical Impression: Sore throat Condition: Stable Record reviewed to determine appropriate education?: Yes Follow-Up: Adilson Coelho MD [Primary Care Provider] - Luke Alfaro MD [Physician No Access] - Comments: Your rapid strep test is negative. Clinically it does not look like a bacterial infection. There will be a culture of the strep test and it will result in a couple of days will. Will call you if there is any signs of bacterial infection. Meanwhile low clinical suspicion and I would say you are fine for your chemotherapy tomorrow. This may be just allergies as there is just a little bit of redness around the uvula. Consider some Zyrtec/cetirizine once or twice daily for the next several days to week or so. Tylenol if needed. Recheck if worsening. Forms: PCP List Discharge Date/Time: 07/12/24 16:04
[2024-07-12 16:15] VITALS: BP 130/80; O2SAT 100
== END 2024-07-12 16:04 | disposition home or self-care (01) ==
LOC: ED 13:41
DX: J02.9 Acute pharyngitis, unspecified (principal)
CPT/HCPCS: 87070; 87430; 99282; 99283

== ENCOUNTER 2024-07-13 08:00 | Outpatient (CLI) | payer MEDICAID | END 2024-07-13 23:59 | disposition home or self-care (01) | LOC: PC 08:00 | PROVIDERS: ATTEND Nurse Practitioner Adult Health | DX: Z51.5 Encounter for palliative care (principal); C50.911 Malignant neoplasm of unspecified site of right female breast; C77.9 Secondary and unspecified malignant neoplasm of lymph node, unspecified; Z17.0 Estrogen receptor positive status [ER+]; Z92.241 Personal history of systemic steroid therapy; L71.9 Rosacea, unspecified; J02.9 Acute pharyngitis, unspecified; F90.9 Attention-deficit hyperactivity disorder, unspecified type; F06.4 Anxiety disorder due to known physiological condition; R19.7 Diarrhea, unspecified; R53.83 Other fatigue; Z59.9 Problem related to housing and economic circumstances, unspecified | CPT/HCPCS: 99215 ==